=== PATIENT | female | born 1985 | race Caucasian/White ===

== ENCOUNTER 2021-11-07 09:12 | Outpatient (CLI) | payer BC | END 2021-11-07 09:13 | disposition home or self-care (01) | LOC: CSHULT 09:12 | PROVIDERS: ATTEND Advanced Practice Midwife | DX: N63.20 Unspecified lump in the left breast, unspecified quadrant (principal) ==

== ENCOUNTER 2022-05-15 18:00 | Inpatient (IN) | payer BC ==
[~2022-05-15 18:00] MED LIST: Bupivacaine HCl 0.5%/Epinephrine 1:200,000/PF 30 ml Vial ONE
[2022-05-15] MEDS ORDERED: HYDROcodone/Acetaminophen 5/325 mg Tablet PO PRN (19:32)
[2022-05-15] MEDS ORDERED: Ibuprofen 800 MG TAB PO PRN (19:32)
[2022-05-15] MEDS ORDERED: hydrALAZINE 20 MG/ML VIAL SLOW IVP PRN (19:32)
[2022-05-15] MEDS ORDERED: Misoprostol 200 MCG TAB PR PRN (19:32)
[2022-05-15] MEDS ORDERED: Acetaminophen 500 MG TAB PO PRN (19:32)
[2022-05-15] MEDS ORDERED: Zolpidem Tartrate 5 MG TAB PO PRN (19:32)
[2022-05-15] MEDS ORDERED: Ondansetron PF 4 MG/2 ML Vial IVP PRN (19:32)
[2022-05-15] MEDS ORDERED: Methylergonovine 0.2 MG/ML VIAL IM PRN (19:32)
[2022-05-15] MEDS ORDERED: Lidocaine 1% (PF) 30 ML VIAL SC PRN (19:32)
[2022-05-15] MEDS ORDERED: Carboprost 250 MCG/ML AMP IM PRN (19:32)
[2022-05-15] MEDS ORDERED: Butorphanol Tartrate 1 MG/ML VIAL SLOW IVP PRN (19:32)
[2022-05-15] MEDS ORDERED: Diphenoxylate HCl/Atropine Tablet PO PRN (19:32)
[2022-05-15] MEDS ORDERED: Promethazine HCl 25 MG/ML VIAL IM PRN (19:32)
[2022-05-15] MEDS ORDERED: NS w/ Oxytocin 30 units 500 ML IV SCH ×2 (19:45)
[2022-05-15] MEDS: Misoprostol 100 MCG TAB VAG SCH ×2 (20:26→23:44)
[2022-05-15 20:55] LABS: SARS-CoV-2 NAA Rapid Test Not Detected (NotDetected)
[2022-05-15 21:39] LABS: Hemoglobin 12.4 g/dL (12.0-15.5); Mean Corpuscular Hemoglobin 31.9 pg (27.0-33.0); Mean Platelet Volume 11.4 fl (7.4-10.4); Platelet Count 163 10x3/uL (150-450); Red Blood Cell (RBC) Count 3.89 10x6/uL (3.90-5.03); White Blood Cell (WBC) Count 9.5 10x3/uL (3.5-10.5)
[2022-05-15 23:26] LABS: Syphilis Antibody Nonreactive (Nonreactive); Syphilis Antibody Index 0.02 S/CO (<1.00 Non-Reactive)
[2022-05-15 23:27] LABS: HBSAg Index 0.14 S/CO (0-0.99); Hep B Surf Ag Non-Reactive S/CO (NonReactive)
[2022-05-16] MEDS: Misoprostol 100 MCG TAB VAG SCH ×2 (02:50→06:15)
[2022-05-16] MEDS: Lactated Ringer's 1,000 ML IV SCH ×2 (06:14→06:15)
[2022-05-16] MEDS ORDERED: Fentanyl 2 mcg/Bup 0.1% Cadd 100 ML ONE (13:37)
[2022-05-16] MEDS ORDERED: diphenhydrAMINE 50 MG/ML VIAL ONE (13:46)
[2022-05-16] MEDS ORDERED: Acetaminophen 325 MG TAB PO PRN (14:19)
[2022-05-16] MEDS ORDERED: diphenhydrAMINE 50 MG/ML VIAL IVP PRN (14:19)
[2022-05-16] MEDS ORDERED: Naloxone HCl 0.4 mg/ml Vial IVP PRN ×2 (14:19)
[2022-05-16] MEDS ORDERED: Promethazine HCl 25 MG/ML VIAL IM PRN ×2 (14:19→20:28)
[2022-05-16] MEDS ORDERED: ePHEDrine Sulfate 50 MG/10 ML VIAL SLOW IVP PRN (14:19)
[2022-05-16] MEDS ORDERED: Moisturizing Cream (Eucerin) 113 GM JAR TOP PRN (14:19)
[2022-05-16] MEDS ORDERED: Ondansetron PF 4 MG/2 ML Vial IVP PRN ×2 (14:19→20:28)
[2022-05-16] MEDS ORDERED: Lactated Ringer's 500 ML IV PRN (14:27)
[2022-05-16] MEDS ORDERED: Communication Order-Pharmacy FS SCH (14:30)
[2022-05-16] MEDS ORDERED: Fentanyl 2 mcg/Bupivacaine 0.1% Cassette 100 ML EPIDURAL SCH (14:30)
[2022-05-16] MEDS ORDERED: Calcium Carbonate 500 MG ChewTAB PO PRN (20:26)
[2022-05-16] MEDS ORDERED: Preparation H Ointment 28 GM TUBE PR PRN (20:28)
[2022-05-16] MEDS ORDERED: Benzocaine-Menthol 82.5 ML CAN TOP PRN (20:28)
[2022-05-16] MEDS ORDERED: HYDROcodone/Acetaminophen 5/325 mg Tablet PO PRN ×2 (20:28)
[2022-05-16] MEDS ORDERED: Boostrix 0.5 ML (Tdap) VIAL (>/=7 yrs of age) IM ONE (20:28)
[2022-05-16] MEDS ORDERED: diphenhydrAMINE 25 MG CAP PO PRN (20:28)
[2022-05-16] MEDS ORDERED: Bisacodyl 10 MG SUPP PR PRN (20:28)
[2022-05-16] MEDS ORDERED: hydrALAZINE 20 MG/ML VIAL SLOW IVP PRN (20:28)
[2022-05-16] MEDS ORDERED: Lanolin Ointment 7 GM TUBE TOP PRN (20:28)
[2022-05-16] MEDS ORDERED: Milk Of Magnesia 30 ML UDCUP PO PRN (20:28)
[2022-05-16] MEDS: Ibuprofen 800 MG TAB PO SCH (21:41)
[2022-05-16] MEDS: Docusate 100 MG CAP PO SCH (21:41)
[2022-05-17] MEDS: Ibuprofen 800 MG TAB PO SCH ×3 (05:50→22:24)
[2022-05-17] MEDS: Ferrous Sulfate 325 MG TAB PO SCH ×2 (09:06→16:22)
[2022-05-17] MEDS: Prenatal Vitamin 1 TAB PO SCH (09:08)
[2022-05-17] MEDS: Docusate 100 MG CAP PO SCH ×2 (09:08→22:24)
[2022-05-17] MEDS: Lactated Ringer's 1,000 ML IV SCH ×2 (09:46→09:47)
[2022-05-17] MEDS: Misoprostol 100 MCG TAB VAG SCH (09:47)
[2022-05-18] MEDS: Ibuprofen 800 MG TAB PO SCH (05:58)
[2022-05-18 08:07] VITALS: BP 136/72; TEMP 98.1
[2022-05-18] MEDS: Ferrous Sulfate 325 MG TAB PO SCH (08:51)
[2022-05-18] MEDS: Docusate 100 MG CAP PO SCH (08:51)
[2022-05-18] MEDS: Prenatal Vitamin 1 TAB PO SCH (08:51)
== END 2022-05-18 12:16 | disposition home or self-care (01) | DRG 807 ==
LOC: CSHLD 18:11 → CSHPED 05-16 20:20
PROVIDERS: ADMIT Student in an Organized Health Care Education/Training Program; ATTEND Student in an Organized Health Care Education/Training Program
PROC: 10E0XZZ Delivery of Products of Conception, External Approach (ICD-10-PCS; principal; 2022-05-16)
PROC: 0KQM0ZZ Repair Perineum Muscle, Open Approach (ICD-10-PCS; 2022-05-16)
PROC: 10907ZC Drainage of Amniotic Fluid, Therapeutic from Products of Conception, Via Natural or Artificial Opening (ICD-10-PCS; 2022-05-16)
PROC: 3E0P7VZ Introduction of Hormone into Female Reproductive, Via Natural or Artificial Opening (ICD-10-PCS; 2022-05-16)
DX: O99.892 Other specified diseases and conditions complicating childbirth (principal); Z37.0 Single live birth; O26.893 Other specified pregnancy related conditions, third trimester; Z67.21 Type B blood, Rh negative; Z20.822 Contact with and (suspected) exposure to COVID-19; Z91.040 Latex allergy status; Z88.5 Allergy status to narcotic agent; Z3A.39 39 weeks gestation of pregnancy; M41.9 Scoliosis, unspecified; N28.89 Other specified disorders of kidney and ureter; O70.1 Second degree perineal laceration during delivery
CPT/HCPCS: 36415; 51702; 85027; 86780; 86850; 86870; 86900; 86901; 87340; J2590; U0002